=== PATIENT | female | born 1965 | race American Indian/Alaskan Native ===

== ENCOUNTER 2021-06-29 19:02 | Emergency (ER) | payer MEDICAID ==
[2021-06-29] MEDS ORDERED: SODIUM CHLORIDE 0.9% 1000 ML 1,000 ML IV ONE ×2 (20:21→23:30)
[2021-06-29] MEDS ORDERED: MORPHINE 4 MG/1 ML INJ IV ONE ×2 (20:21→23:00)
[2021-06-29] MEDS ORDERED: ONDANSETRON 4 MG/2 ML INJ IV ONE ×2 (20:21→23:00)
--- NOTE | 2021-06-29 20:22 | Event Note ---
ED Screening Note ED Screening Note: Patient presents for generalized abdominal pain and nausea, vomiting, diarrhea that began 2 days ago States she has not been able to tolerate p.o. intake and cannot keep down her blood pressure medication or diabetes medication Allergy to Flagyl and vancomycin and sulfa This initial assessment/diagnostic orders/clinical plan/treatment(s) is/are subject to change based on patients health status, clinical progression and re- assessment by fellow clinical providers in the ED. Further treatment and workup at subsequent clinical providers discretion. Patient/guardian urged not to elope from the ED as their condition may be serious if not clinically assessed and managed. Initial orders include: Labs, urine, CT, meds
[2021-06-29 20:56] LABS: Basophils % (Auto) 0.7 % (0.0-1.8); Eosinophils # (Auto) 0.1 K/mm3 (0.0-0.4); Eosinophils % (Auto) 1.7 % (0.0-4.3); Hematocrit 42.9 % (30.3-42.9); Hemoglobin 14.2 gm/dl (10.1-14.3); Lymphocytes # (Auto) 1.6 K/mm3 (1.2-5.4); Lymphocytes % (Auto) 30.4 % (13.4-35.0); Mean Corpuscular HGB Conc 33 % (30-34); Mean Corpuscular Volume 96 fl (79-97); Monocytes # (Auto) 0.4 K/mm3 (0.0-0.8); Monocytes % (Auto) 8.4 % (0.0-7.3); Platelet Count 259 K/mm3 (140-440); Red Blood Count 4.47 M/mm3 (3.65-5.03); Red Cell Distribution Width 14.3 % (13.2-15.2)
[2021-06-29 21:21] LABS: Alanine Aminotransferase 11 units/L (7-56); Albumin 4.5 g/dL (3.9-5); Blood Urea Nitrogen 9 mg/dL (7-17); Hemolysis Index 19
[2021-06-29 21:25] LABS: BUN/Creatinine Ratio 15
[2021-06-29] MEDS ORDERED: INSULIN REGULAR, HUMAN 100 UNITS/1 ML IV ONE (22:06)
--- NOTE | 2021-06-29 22:08 | Emergency Department Report ---
HPI - General Chief Complaint: Abdominal Pain Time Seen by Provider: 06/29/21 21:07 - HPI HPI: 55-year-old -[place] female presents to the emergency department with a 3-day history of nausea with vomiting, and the patient has some left lower flank pain. She denies any fever, chest pain, shortness of breath, dysuria, vaginal bleeding or discharge. She has had such copious nausea vomiting that she has been unable to take her home medications. She has a past medical history of hypertension, insulin-dependent diabetes, and COPD (not oxygen dependent). No recent travel or sick contacts at home. The patient has been vaccinated for COVID-19 including a booster shot, and also was positive for COVID-19 back in May. ED Past Medical Hx - Past Medical History Hx Hypertension: Yes Hx Diabetes: Yes Hx Psychiatric Treatment: Yes ([place], [place]) Hx Asthma: No Hx COPD: No Additional medical history: depression and anxiety - Surgical History Hx Breast Surgery: Yes (BREAST REDUCTION;CYST REMOVED LEFT BREAST 2012) - Social History Smoking Status: Current Every Day Smoker Substance Use Type: None - Medications Home Medications: Home Medications Medication Instructions Recorded Confirmed Last Taken Type Venlafaxine [Effexor] 150 mg PO DAILY 11/15/13 11/15/13 Unknown History clonazePAM [KlonoPIN] 1 tab PO BID 11/15/13 11/15/13 Unknown History glipiZIDE [Glucotrol] 20 mg PO BID 11/15/13 11/15/13 Unknown History lisinopriL [Zestril TAB] 1 tab PO DAILY 11/15/13 11/15/13 Unknown History metFORMIN [Glucophage] 1,000 mg PO BID 11/15/13 11/15/13 Unknown History traZODone [Desyrel] 1 tab PO QHS 11/15/13 11/15/13 Unknown History Amoxicillin/Potassium Clav 1 each PO BID #14 tab 06/30/21 Unknown Rx [Augmentin 875-125 Tablet] Ondansetron [Zofran Odt] 4 mg PO Q8HR PRN #15 tab.rapdis 06/30/21 Unknown Rx traMADoL [Ultram 50 MG tab] 50 mg PO Q6HR PRN #12 tablet 06/30/21 Unknown Rx ED Review of Systems ROS: Stated complaint: L FLANK PAIN WITH NAUSEA AND VOMITING Other details as noted in HPI Comment: All other systems reviewed and negative Constitutional: denies: chills, fever Eyes: denies: eye pain, vision change ENT: denies: ear pain, throat pain Respiratory: denies: cough, shortness of breath Cardiovascular: denies: chest pain, palpitations Gastrointestinal: nausea, vomiting Genitourinary: denies: dysuria, discharge Musculoskeletal: back pain. denies: arthralgia Skin: denies: rash, lesions Neurological: denies: headache, weakness Physical Exam - Physical Exam Physical Exam: GENERAL: The patient is well-developed well-nourished. HENT: Normocephalic. Atraumatic. Patient has moist mucous membranes. EYES: Extraocular motions are intact NECK: Supple. Trachea is midline. CHEST/LUNGS: Clear to auscultation. There is no respiratory distress noted. HEART/CARDIOVASCULAR: Regular. There is no tachycardia. There is no murmur. ABDOMEN: Abdomen is soft. Mild left-sided abdominal tenderness to palpation. No guarding. Patient has normal bowel sounds. There is no abdominal distention. SKIN: Skin is warm and dry. NEURO: The patient is awake, alert, and oriented. The patient is cooperative. The patient has no focal neurologic deficits. Normal speech. MUSCULOSKELETAL: There is no tenderness or deformity. There is no limitation range of motion. ED Medical Decision Making - Lab Data Result diagrams: 06/29/21 20:34 06/29/21 20:34 Lab Results 06/29/21 06/29/21 06/30/21 Range/Units 20:34 20:34 01:04 WBC 5.2 (4.5-11.0) K/mm3 RBC 4.47 (3.65-5.03) M/mm3 Hgb 14.2 (10.1-14.3) gm/dl Hct 42.9 (30.3-42.9) % MCV 96 (79-97) fl MCH 32 (28-32) pg MCHC 33 (30-34) % RDW 14.3 (13.2-15.2) % Plt Count 259 (140-440) K/mm3 Lymph % (Auto) 30.4 (13.4-35.0) % Pershing % (Auto) 8.4 H (0.0-7.3) % Eos % (Auto) 1.7 (0.0-4.3) % Baso % (Auto) 0.7 (0.0-1.8) % Lymph # (Auto) 1.6 (1.2-5.4) K/mm3 Pershing # (Auto) 0.4 (0.0-0.8) K/mm3 Eos # (Auto) 0.1 (0.0-0.4) K/mm3 Baso # (Auto) 0.0 (0.0-0.1) K/mm3 Seg Neutrophils % 58.8 (40.0-70.0) % Seg Neutrophils # 3.1 (1.8-7.7) K/mm3 Sodium 138 (137-145) mmol/L Potassium 4.4 (3.6-5.0) mmol/L Chloride 99.6 (98-107) mmol/L Carbon Dioxide 25 (22-30) mmol/L Anion Gap 18 mmol/L BUN 9 (7-17) mg/dL Creatinine 0.6 (0.6-1.2) mg/dL Estimated GFR > 60 ml/min BUN/Creatinine Ratio 15 % Glucose 338 H (65-100) mg/dL POC Glucose 193 H (70-105) mg/dL Calcium 10.0 (8.4-10.2) mg/dL Total Bilirubin 0.70 (0.1-1.2) mg/dL AST 11 (5-40) units/L ALT 11 (7-56) units/L Alkaline Phosphatase 189 H (35-129) units/L Total Protein 7.2 (6.3-8.2) g/dL Albumin 4.5 (3.9-5) g/dL Albumin/Globulin Ratio 1.7 % Lipase 56 (13-60) units/L - Radiology Data Radiology results: report reviewed CT ABDOMEN AND PELVIS WITH CONTRAST INDICATION / CLINICAL INFORMATION: Generalized abdominal pain, nausea with vomiting, diarrhea. TECHNIQUE: Axial CT images were obtained through the abdomen and pelvis after 100 cc Omnipaque [address] scans at this location are performed using CT dose reduction for ALARA by means of automated exposure control. COMPARISON: None available. FINDINGS: LOWER CHEST: No significant abnormality. LIVER: No significant abnormality. GALLBLADDER: There is cholelithiasis without evidence of acute cholecystitis. BILE DUCTS: No significant abnormality. PANCREAS: No significant abnormality. SPLEEN: A midpole cyst measures 9 mm. No other significant abnormality. ADRENALS: A hyperdense right adrenal nodule measures 1 cm. No significant abnormality of the left adrenal gland. RIGHT KIDNEY/URETER: No significant abnormality. LEFT KIDNEY/URETER: No significant abnormality. STOMACH/SMALL BOWEL: No significant abnormality. COLON: Mild thickening is noted from the distal third of the ascending colon through the splenic flexure. No other significant abnormalities. APPENDIX: No significant abnormality. PERITONEUM: No free fluid. No free air. No fluid collection. LYMPH NODES: No significant adenopathy. VASCULATURE: No acute findings. There is mild generalized atherosclerosis. URINARY BLADDER: No significant abnormality. REPRODUCTIVE ORGANS: No significant abnormality. Prior hysterectomy. ADDITIONAL FINDINGS: None. BONES: No acute findings. There are mild degenerative changes throughout the spine and along the pelvis with unremarkable appearing left hip internal fixation. IMPRESSION: 1. Suspected uncomplicated mild colitis without other acute findings. 2. Indeterminate right adrenal nodule. A nonemergent CT abdomen with and without contrast (adrenal protocol) is suggested for further evaluation. 3. Additional findings as above. - Medical Decision Making This patient presents to the emergency department with a 3-day history of some nausea with vomiting and left lower flank pain. On examination there is some mild left-sided abdominal tenderness to palpation but otherwise the abdomen is soft, nondistended and nontoxic in appearance. Heart and lung sounds are normal to auscultation and the patient does not appear in any respiratory or acute distress. Labs are mostly unremarkable including CBC, metabolic panel, and lipase, except for hyperglycemia. The patient's blood sugar was about 340, but there is no significant elevation to the anion gap and the patient does not appear in diabetic ketoacidosis. She was given some IV fluid resuscitation, analgesia, antiemetic, and a dose of insulin. Repeat Accu-Chek came out at about 190. CT scan of the abdomen pelvis shows some mild colitis. There is also cholelithiasis without cholecystitis but this does not appear consistent with the patient's left-sided flank pain. The patient was reevaluated multiple times over multiple hours and appears improved. There has been no further vomiting while in the emergency department. The patient was able to pass an oral challenge. She will be discharged home with antiemetics, analgesia and antibiotics. The patient will follow-up with her primary care physician and will return to the emergency department with any worsening of her symptoms or with any acute distress. Critical Care Time: No Critical care attestation.: If time is entered above; I have spent that time in minutes in the direct care of this critically ill patient, excluding procedure time. ED Disposition Clinical Impression: Hyperglycemia, Colitis Nausea & vomiting Qualifiers: Vomiting type: unspecified Qualified Code(s): R11.2 - Nausea with vomiting, unspecified Disposition: HOME / SELF CARE / HOMELESS Is pt being admited?: No Condition: Stable Instructions: Hyperglycemia, Nausea and Vomiting, Adult, Colitis, Abdominal Pain (ED) Additional Instructions: Please follow-up with your primary care physician in the next few days. Increase your oral rehydration. Take all medications as prescribed. Try to stay away from foods that are high in sugar, carbohydrates and starches. Keep a blood sugar log. You have been prescribed a medication that is sedating and therefore should not be taken prior to driving, working, and responsible for children and in no way should be mixed with alcohol of any quantity. Return to the emergency department with any worsening of your symptoms, new or concerning symptoms not addressed during this current emergency department visit, or with any acute distress. Prescriptions: Amoxicillin/Potassium Clav [Augmentin 875-125 Tablet] 1 each PO BID #14 tab traMADoL [Ultram 50 MG tab] 50 mg PO Q6HR PRN #12 tablet PRN Reason: Pain Ondansetron [Zofran Odt] 4 mg PO Q8HR PRN #15 tab.rapdis PRN Reason: Nausea Referrals: DYAN YANEZ [Other] - 2-3 Days Time of Disposition: 01:49
--- NOTE | 2021-06-29 22:27 | Cat Scan Report ---
CT ABDOMEN AND PELVIS WITH CONTRAST INDICATION / CLINICAL INFORMATION: Generalized abdominal pain, nausea with vomiting, diarrhea. TECHNIQUE: Axial CT images were obtained through the abdomen and pelvis after 100 cc Omnipaque [address] scans at this location are performed using CT dose reduction for ALARA by means of automated exposure control. COMPARISON: None available. FINDINGS: LOWER CHEST: No significant abnormality. LIVER: No significant abnormality. GALLBLADDER: There is cholelithiasis without evidence of acute cholecystitis. BILE DUCTS: No significant abnormality. PANCREAS: No significant abnormality. SPLEEN: A midpole cyst measures 9 mm. No other significant abnormality. ADRENALS: A hyperdense right adrenal nodule measures 1 cm. No significant abnormality of the left adr enal gland. RIGHT KIDNEY/URETER: No significant abnormality. LEFT KIDNEY/URETER: No significant abnormality. STOMACH/SMALL BOWEL: No significant abnormality. COLON: Mild thickening is noted from the distal third of the ascending colon through the splenic flex ure. No other significant abnormalities. APPENDIX: No significant abnormality. PERITONEUM: No free fluid. No free air. No fluid collection. LYMPH NODES: No significant adenopathy. VASCULATURE: No acute findings. There is mild generalized atherosclerosis. URINARY BLADDER: No significant abnormality. REPRODUCTIVE ORGANS: No significant abnormality. Prior hysterectomy. ADDITIONAL FINDINGS: None. BONES: No acute findings. There are mild degenerative changes throughout the spine and along the pelv is with unremarkable appearing left hip internal fixation. IMPRESSION: 1. Suspected uncomplicated mild colitis without other acute findings. 2. Indeterminate right adrenal nodule. A nonemergent CT abdomen with and without contrast (adrenal pr otocol) is suggested for further evaluation. 3. Additional findings as above. Signer Name: Charles Ross MD Signed: 06/29/2021 10:23 PM Workstation Name: [id number]
[2021-06-30 01:44] VITALS: BP 153/93
== END 2021-06-30 01:50 | disposition home or self-care (01) ==
LOC: ED 19:02
DX: E11.65 Type 2 diabetes mellitus with hyperglycemia (principal); R11.2 Nausea with vomiting, unspecified; K52.9 Noninfective gastroenteritis and colitis, unspecified; I10 Essential (primary) hypertension; Z98.890 Other specified postprocedural states; F17.200 Nicotine dependence, unspecified, uncomplicated; Z88.1 Allergy status to other antibiotic agents
CPT/HCPCS: 36415; 74177; 80053; 82962; 83690; 85025; 96361; 96374; 96375; 99284; J2270; J2405; J7030; Q9967; Q0162; J1815